=== PATIENT | male | born 1995 | race Asian ===

== ENCOUNTER 2020-06-12 20:40 | Emergency (ER) | payer OTHER, SELFPAY ==
[2020-06-12] VITALS (8 sets, daily range): BP systolic 124–136; BP diastolic 75–89; PULSE 102–125; RESP 19–35; TEMP 37.2; O2SAT 97–100
[2020-06-12 21:07] LABS: Add Manual Diff / Slide Review NO; Basophils Absolute Auto 100 /uL (0-100); Basophils Percent Auto 0.9 % (0-2); Eosinophils Absolute Auto 200 /uL (0-450); Hematocrit 50.4 % (41-53); Hemoglobin 17.2 g/dL (13.5-17.5); Lymphocytes Absolute Auto 2400 /uL (1100-4500); Lymphocytes Percent Auto 26.9 % (25-40); Mean Corpuscular HGB Conc 34.2 % (30-36); Mean Corpuscular Hemoglobin 28.5 PG (26-34); Mean Corpuscular Volume 83.3 fL (80-100); Monocytes Absolute Auto 600 /uL (0-900); Monocytes Percent Auto 7.1 % (3-14); Neutrophils Absolute Auto 5600 /uL (1500-7000); Neutrophils Percent Auto 63.1 % (50-75); Platelet Count 269 X10^3/uL (150-400); Red Blood Cell Count 6.05 X10^6/uL (4.5-5.9); Red Cell Distribution Width 12.8 % (11.6-14.8); White Blood Cell Count 8.9 X10^3/uL (4.5-11.0)
--- NOTE | 2020-06-12 21:08 | ED_ITS ---
HPI - Extremity Problem General Chief complaint: Extremity Problem,Nontraumatic Stated complaint: right hand swelling, unsure of cause Time Seen by Provider: 06/12/20 20:40 Source: patient Mode of arrival: Ambulatory Limitations: no limitations History of Present Illness HPI Narrative: 24-year-old male nonsmoker with noncontributory medical history presents with a chief complaint of a sudden onset pain and swelling in his right hand over the past few hours. He denies any injury whatsoever but has had a surgery on that hand for orthopedic injury a few years ago. Additionally complains of feeling a bit weak and feverish and has had night sweats the past few nights. He is not dizzy or light headed. He denies any street drugs or alcohol. He has had no chest pain or shortness of breath. Denies any recent travel or history of blood clot. MD Complaint: extremity pain and extremity swelling Onset (ago): hour(s) Pain Consistency: constant Location: right Quality: aching Radiation: none Relieving factors: immobilization Exacerbating factors: range of motion Related Data Previous Rx's Medication Instructions Recorded ketorolac 10 mg PO Q6H PRN #14 tab 06/13/20 Allergies Allergy/AdvReac Type Severity Reaction Status Date / Time No Known Drug Allergies Allergy Verified 06/12/20 20:52 Review of Systems Constitutional Constitutional: Denies chills, Denies fatigue, Denies fever(s), Denies frequent falls, Denies lethargy and Reports weakness Comments: night sweats Eyes Eyes: Denies change in vision, Denies eye discharge, Denies irritation and Denies loss of vision ENT Ears, Nose, Mouth, and Throat: Denies change in voice, Denies dizziness, Denies neck pain, Denies sore throat and Denies throat swelling Cardiovascular Cardiovascular: Denies chest pain, Denies irregular heart rhythm, Denies ligh theadedness, Denies palpitations, Denies dyspnea, Denies dyspnea on exertion and Denies orthopnea Respiratory Respiratory: Denies cough, Denies dyspnea, Denies dyspnea on exertion and Denies wheezing Gastrointestinal Gastrointestinal: Denies abdominal pain, Denies change in bowel habits, Denies diarrhea, Denies nausea and Denies vomiting Musculoskeletal Musculoskeletal: Reports arthralgias, Denies neck pain and Denies numbness Integumentary/Breasts Skin/Breast: Denies pruritus, Denies erythema, Denies rash and Denies wounds Neurologic Neurologic: Denies behavioral changes, Denies confusion, Denies dizziness, Denies frequent falls, Denies loss of vision, Denies numbness and Reports weakness Psychiatric Psychiatric: Denies anxiety, Denies behavioral changes, Denies confusion, Denies depression, Denies homicidal ideation and Denies suicidal ideation Endocrine Endocrine: Denies fatigue, Denies flushing and Denies palpitations Hematologic/Lymphatic Hematologic/Lymphatic: Denies easy bruising Allergic/Immunologic Allergic/Immunologic: Denies urticaria, Denies throat swelling and Denies wh eezing Patient History Medical History (Updated 06/13/20 @ 03:30 by Roger Dutton DO) Presence of surgical screw in right hand (Acute) Social History Smoking Status: Current every day smoker Smoking Status: Current every day smoker alcohol intake frequency: 0-2 drinks per day Substance Use Type: does not use Exam Narrative Exam Narrative: GENERAL: [24] year old patient appears stated age. Well- nourished, well-developed patient, in mild distress. Anxious HEAD: Atraumatic. Normocephalic. EYES: Pupils equal round and reactive. Extraocular motions intact. No scleral icterus. No injection or drainage. ENT: Nose without bleeding, purulent drainage. Throat without erythema, tonsillar hypertrophy or exudate. Airway patent. NECK: Trachea midline. Non tender CARDIOVASCULAR: Tachycardic but regular rhythm without murmurs, gallops, or rubs. RESPIRATORY: Clear to auscultation. Breath sounds equal bilaterally. No wheezes, rales, or rhonchi. GASTROINTESTINAL: Abdomen soft, non-tender, nondistended. EXTREMITIES: Scar from previous surgery on dorsum of R hand overlying 4th MC. Swelling and tenderness, no erythema, no red streaks. BACK: Nontender without deformity or crepitance. No flank tenderness. NEURO: AOx3. SKIN: No rash or erythema of visible areas Initial Vital Signs Initial Vital Signs: Vital Signs Temperature 98.9 F 06/12/20 20:49 Pulse Rate 125 H 06/12/20 20:49 Respiratory Rate 24 06/12/20 20:49 Blood Pressure 134/75 06/12/20 20:49 Pulse Oximetry 100 06/12/20 20:49 Course Orders Ordered: ED Orders 06/12/20 20:51 EKG-12 Lead Stat 06/12/20 20:59 Basic Metabolic Panel Stat C-Reactive Protein Quant Stat Complete Blood Count AUTO DIFF Stat D Dimer Stat Lactate (Lactic Acid) Stat Magnesium Stat NT-proBNP (BNP-Adult 18+) Stat Procalcitonin Stat Prothrombin Time INR Stat 06/12/20 21:22 Blood Culture Stat 06/12/20 22:41 CT angio chest PE protocol Stat 06/13/20 EKG-12 Lead Stat 06/13/20 01:10 XR hand RT min 3V Stat 06/13/20 01:36 CT UE RT w con Stat Discontinued Medications Hydrocodone Bitart/Acetaminophen (Vicodin 5/325 Prepack) 1 bottle MISC SEEINSTR ONE Stop: 06/13/20 03:31 Sodium Chloride (Normal Saline 0.9%) 1,000 mls @ 1,000 mls/hr IV BOLUS ONE Stop: 06/12/20 21:50 Last Infusion: 06/12/20 22:37 Dose: 0 mls/hr Documented by: Admin: 06/12/20 21:21 Dose: 1,000 mls/hr Documented by: TESS Ketorolac Tromethamine (Toradol) 15 mg IV NOW ONE Stop: 06/13/20 01:11 Last Admin: 06/13/20 01:16 Dose: 15 mg Documented by: TESS Reevaluation(s) Reevaluation #1: as visit goes on patient discusses episodes of chest pain and some episodes of trouble breathing along with some night sweats. Given elevated DDimer decision was made to pursue PE with CTA. Consultations Consultation #1: call to Ortho to discuss case. Labs are reassuring in that there is no elevation of CBC, ESR, or CRP however given pain with passive/active range of motion and swelling without injury we elect to do CT of extremity with IV contrast to evaluate for deep infection/abscess Vital Signs Vital signs: Vital Signs - 8 hr 06/12/20 20:49 06/12/20 20:50 06/12/20 21:00 Temperature 98.9 F Pulse Rate 121 H 121 H 115 H Pulse Rate [Right Radial] 110 H Respiratory Rate 24 35 H 19 Blood Pressure 134/75 129/78 124/78 Pulse Oximetry 98 98 97 06/12/20 21:30 06/12/20 22:00 06/12/20 22:30 Temperature Pulse Rate 110 H 102 H 105 H Pulse Rate [Right Radial] Respiratory Rate 34 H 27 H 24 Blood Pressure 130/89 136/83 130/79 Pulse Oximetry 97 98 99 06/12/20 23:09 06/12/20 23:30 06/13/20 00:00 Temperature Pulse Rate 105 H 104 H 105 H Pulse Rate [Right Radial] Respiratory Rate 23 19 Blood Pressure 129/76 Pulse Oximetry 98 98 97 MDM - Extremity (Nontraumatic) Lab Data Result diagrams: 06/12/20 20:59 06/12/20 20:59 Labs: Lab Results 06/12/20 06/12/20 06/12/20 Range/Units 20:59 20:59 20:59 WBC 8.9 (4.5-11.0) X10^3/uL RBC 6.05 H (4.5-5.9) X10^6/uL Hgb 17.2 (13.5-17.5) g/dL Hct 50.4 (41-53) % MCV 83.3 (80-100) fL MCH 28.5 (26-34) PG MCHC 34.2 (30-36) % RDW 12.8 (11.6-14.8) % Plt Count 269 (150-400) X10^3/uL Neut % (Auto) 63.1 (50-75) % Lymph % (Auto) 26.9 (25-40) % [place]ville % (Auto) 7.1 (3-14) % Eos % (Auto) 2.0 (2-4) % Baso % (Auto) 0.9 (0-2) % Neut # (Auto) 5600 (3558-8690) /uL Lymph # (Auto) 2400 (8591-8488) /uL Granville # (Auto) 600 (0-900) /uL Eos # (Auto) 200 (0-450) /uL Baso # (Auto) 100 (0-100) /uL PT 12.3 (10.1-12.7) SECONDS INR 1.1 (0.9-1.3) D-Dimer 289 H (<230) ng/mL Sodium (137-145) mmol/L Potassium (3.4-5.1) mmol/L Chloride (98-107) mmol/L Carbon Dioxide (22-32) mmol/L BUN (9-20) mg/dL Creatinine (0.66-1.25) mg/dL Estimated GFR (>60) mL/min BUN/Creatinine Ratio (6-22) Glucose (70-100) mg/dL Lactate (0.7-2.1) mmol/L Calcium (8.4-10.2) mg/dL Magnesium (1.6-2.3) mg/dL C-Reactive Protein (<1.0) mg/dL NT-Pro-B Natriuret Pep (<125) pg/mL Procalcitonin (<0.5) ng/mL 06/12/20 06/12/20 06/12/20 Range/Units 20:59 20:59 20:59 WBC (4.5-11.0) X10^3/uL RBC (4.5-5.9) X10^6/uL Hgb (13.5-17.5) g/dL Hct (41-53) % MCV (80-100) fL MCH (26-34) PG MCHC (30-36) % RDW (11.6-14.8) % Plt Count (150-400) X10^3/uL Neut % (Auto) (50-75) % Lymph % (Auto) (25-40) % Granville % (Auto) (3-14) % Eos % (Auto) (2-4) % Baso % (Auto) (0-2) % Neut # (Auto) (0977-3480) /uL Lymph # (Auto) (5311-4386) /uL Granville # (Auto) (0-900) /uL Eos # (Auto) (0-450) /uL Baso # (Auto) (0-100) /uL PT (10.1-12.7) SECONDS INR (0.9-1.3) D-Dimer (<230) ng/mL Sodium 141 (137-145) mmol/L Potassium 4.2 (3.4-5.1) mmol/L Chloride 102 (98-107) mmol/L Carbon Dioxide 28 (22-32) mmol/L BUN 14 (9-20) mg/dL Creatinine 1.13 (0.66-1.25) mg/dL Estimated GFR > 60.0 (>60) mL/min BUN/Creatinine Ratio 12.4 (6-22) Glucose 91 (70-100) mg/dL Lactate 1.9 (0.7-2.1) mmol/L Calcium 9.5 (8.4-10.2) mg/dL Magnesium 2.1 (1.6-2.3) mg/dL C-Reactive Protein < 0.5 (<1.0) mg/dL NT-Pro-B Natriuret Pep < 11 (<125) pg/mL Procalcitonin < 0.05 (<0.5) ng/mL Imaging Data Extremity x-ray #1: Radiologist's Impression: No acute CT abnormality is evident Discharge Plan Departure Patient Disposition: Home Clinical Impression: Hand pain, right Instructions: DI for Cellulitis -- Adult, DI for Hand Pain Activity Restrictions/Additional Instructions: *You have been diagnosed with [ hand pain, swelling, no evidence of infection in labs or imaging ] *What to do: *Take medications as directed *Follow up with your primary care provider in 2-3 days, call for an appointment. Let them know you were seen in the Emergency Department and that we ask that you be seen in follow up *Return to ER if you should have any new, worsening or concerning symptoms Prescriptions: New ketorolac 10 mg tablet 10 mg PO Q6H PRN (Reason: pain) Qty: 14 RF: 0 Referrals: [facility] [Outside] Dakotah Feldman MD [Physician] -
[2020-06-12 21:17] LABS: Lactate (Lactic Acid) 1.9 mmol/L (0.7-2.1)
[2020-06-12 21:19] LABS: BUN Creatinine Ratio 12.4 (6-22); Blood Urea Nitrogen 14 mg/dL (9-20); Calcium 9.5 mg/dL (8.4-10.2); Carbon Dioxide 28 mmol/L (22-32); Chloride 102 mmol/L (98-107); Estimated Glomerular Filt Rate > 60.0 mL/min (>60); Glucose 91 mg/dL (70-100); HEMOLYSIS 39 (0-50); Magnesium 2.1 mg/dL (1.6-2.3); Potassium 4.2 mmol/L (3.4-5.1); Sodium 141 mmol/L (137-145)
[2020-06-12 21:20] LABS: INR 1.1 (0.9-1.3); Prothrombin Time 12.3 SECONDS (10.1-12.7)
[2020-06-12] MEDS: SODIUM CHLORIDE 0.9% 1,000 ML 1000 ML IV (21:21)
[2020-06-12 21:24] LABS: C-Reactive Protein Quant < 0.5 mg/dL (<1.0)
[2020-06-12 21:25] LABS: NT-proBNP (BNP-Adult 18+) < 11 pg/mL (<125)
--- NOTE | 2020-06-12 21:29 | PC.NURSE ---
Pt had 15 seconds of 8/10 sharp chest pain, significant facial grimace observed. Pt states he has had intermittent episodes of this over past month lasting for a few seconds at a time. Has not sought tx. Dr. Dutton notified, no new orders. Pt vital stable, laughing in room with friend, no acute distress noted after episode.
[2020-06-12 21:32] LABS: Procalcitonin < 0.05 ng/mL (<0.5)
[2020-06-12 21:39] LABS: D Dimer 289 ng/mL (<230)
--- NOTE | 2020-06-12 22:41 | DI.CT.S_ITS ---
PROCEDURE: CT ANGIO CHEST PE PROTOCOL INDICATIONS: chest pain, tachycardia, sweats, elevated DDimer TECHNIQUE: After the administration of intravenous contrast, 2 mm thick sections acquired from the pulmonary apices to the posterior costophrenic angles. 3-dimensional maximum intensity projection (MIP) coronal and sagittal reformats were then acquired through the thorax. For radiation dose reduction, the following was used: automated exposure control, adjustment of mA and/or kV according to patient size. COMPARISON: None. FINDINGS: Image quality: Excellent. Pulmonary arteries: Pulmonary arteries are normal in size, and demonstrate no intraluminal filling defects to suggest central pulmonary embolism. Lungs and pleura: Lungs are clear. No pleural effusions or pneumothorax. Central and peripheral airways are patent. Mediastinum: Heart size is normal, without pericardial effusion. No mediastinal or hilar adenopathy. Thoracic aorta is normal in caliber and enhancement. Esophagus is normal in caliber, without hiatal hernia. Bones and chest wall: No suspicious bony lesions. Ribs and thoracic spine appear intact throughout. Thyroid gland is normal where visualized. No axillary or supraclavicular adenopathy. Abdomen: Visualized upper abdominal solid organs appear normal in the early arterial phase of enhancement. IMPRESSION: 1. No pulmonary embolus. 2. No lung consolidation or pleural effusions. Dictated by: Awa Means MD, PhD on 06/13/2020 at 7:11 Approved by: Awa Means MD, PhD on 06/13/2020 at 7:13
[2020-06-13] VITALS: PULSE 105; RESP 19; O2SAT 97
--- NOTE | 2020-06-13 01:10 | DI.RAD.S_ITS ---
PROCEDURE: XR HAND RT MIN 3V INDICATIONS: pain, swelling, no obvious injury TECHNIQUE: 3 views of the hand(s) acquired. COMPARISON: None. FINDINGS: Bones: No acute fractures or dislocations. Postsurgical changes compatible with ORIF of 4th and 5th metacarpal fractures. Orthopedic hardware is intact. No lucencies at the bone-hardware interface. Carpal bones are normally aligned. No suspicious bony lesions. No osseous erosive changes or periosteal reaction. Soft tissues: No suspicious soft tissue calcifications. No soft tissue gas. IMPRESSION: No domenic evidence of osteomyelitis. Plain film radiographs can be insensitive to osteomyelitis during the initial 15 days of the disease process. If there is clinical concern for osteomyelitis, then three-phase nuclear medicine bone scan should be considered for further evaluation. Dictated by: Awa Means MD, PhD on 06/13/2020 at 8:13 Approved by: Awa Means MD, PhD on 06/13/2020 at 8:14
[2020-06-13] MEDS: KETOROLAC 60 MG/2 ML VIAL 15 MG IV (01:16)
--- NOTE | 2020-06-13 01:36 | DI.CT.S_ITS ---
PROCEDURE: CT UE RT W CON INDICATIONS: pain, swelling, redness, no injury TECHNIQUE: After the administration of intravenous contrast, 3 mm axial sections acquired of the right hand and wrist , with coronal and sagittal reformats. COMPARISON: None. FINDINGS: Image quality: Excellent. Bones: Postsurgical changes related to plate and screw fixation of the 4th and 5th metacarpals. Expected postoperative alignment. Hardware appears intact. Soft tissues: Soft tissues appear grossly unremarkable. No focal fluid collection. The visualized extensor and flexor tendons appear within normal limits. IMPRESSION: No focal osseous destruction to suggest advanced osteomyelitis. If there is persistent clinical concern, continued short interval radiographic followup or contrast enhanced MRI could be performed to assess for early infection. Findings concordant with the preliminary study interpretation provided at the time of the exam. Dictated by: Cory Ibrahim M.D. on 06/13/2020 at 8:11 Approved by: Cory Ibrahim M.D. on 06/13/2020 at 8:17
[2020-06-13] MEDS: HYDROCODONE/ACET 5/325 PREPACK 1 BOTTLE MISC (03:49)
== END 2020-06-13 04:01 | disposition home or self-care (01) ==
PROVIDERS: Emergency Provider Emergency Medicine
DX: M79.641 Pain in right hand (principal); R06.00 Dyspnea, unspecified
CPT/HCPCS: 36415; 71275; 73130; 73201; 80048; 83605; 83735; 83880; 84145; 85025; 85379; 85610; 86140; 87040; 93005; 93041; 96361; 96374; 99284; J1885; Q9967

== ENCOUNTER 2022-12-05 11:56 | Emergency (ER) | payer OTHER, SELFPAY ==
[2022-12-05] VITALS (8 sets, daily range): BP systolic 108–136; BP diastolic 56–65; PULSE 67–92; RESP 16; TEMP 36.7; O2SAT 98–100; BMI 27.2
[2022-12-05] MEDS: ACETAMINOPHEN 325 MG TABLET 975 MG PO (12:09)
--- NOTE | 2022-12-05 12:38 | DI.CT.S_ITS ---
PROCEDURE: CT HEAD/BRAIN WO CON INDICATIONS: sudden headache, nausea, dizzy TECHNIQUE: Noncontrast 4.5 mm thick angled axial sections acquired from the foramen magnum to the vertex, with coronal and sagittal reformats. For radiation dose reduction, the following was used: automated exposure control, adjustment of mA and/or kV according to patient size. COMPARISON: None. FINDINGS: Image quality: Excellent. CSF spaces: Basal cisterns are patent. No extra-axial fluid collections. Ventricles are normal in size and shape. Brain: No midline shift. No intracranial masses or hemorrhage. Wayne-white matter interface is normal. Skull and face: Calvarium and visualized facial bones are intact, without suspicious lesions. Sinuses: Visualized sinuses and mastoids are clear. IMPRESSION: No evidence acute intracranial process. Dictated by: Colt Brooke M.D. on 12/05/2022 at 13:11 Approved by: Colt Brooke M.D. on 12/05/2022 at 13:12
--- NOTE | 2022-12-05 16:55 | DI.RAD.S_ITS ---
PROCEDURE: XR CERVICAL SPINE 2V OR 3V INDICATIONS: Left posterior neck pain TECHNIQUE: 3 view(s) of the cervical spine were acquired. COMPARISON: None. FINDINGS: Normal cervical spine vertebral body height and alignment. No fracture. No suspicious lytic or blastic osseous lesion. Prevertebral soft tissue thickness normal. IMPRESSION: No acute finding. No significant degenerative changes. Dictated by: Vaughn Dietz M.D. on 12/05/2022 at 17:25 Approved by: Vaughn Ditez M.D. on 12/05/2022 at 17:25
--- NOTE | 2022-12-05 16:56 | ED.HA ---
HPI - Headache General Chief Complaint: Headache Stated Complaint: severe headache Time Seen by Provider: 12/05/22 16:18 History of Present Illness HPI Narrative: Patient brought here by a friend. Complains of left-sided neck pain. Increased pain with movement. If he slowly moves his neck has pain but more tolerable. Does not matter what direction. No known injury. No new routine or bedding or pillow. No new stressors. Denies denies any headache. No fever chills. No prior problems with his neck. Does not ?pop? his neck. No neuro complaints. No numbness tingling or weakness. No slurred speech or facial droop. No vision changes. Patient states pain started 7:00 p.m. last night, 22 hours ago. Started slowly and has progressively gotten worse. All day yesterday no neck pain. No fever or chills. No nausea or vomiting or diarrhea. Related Data Previous Rx's Medication Instructions Recorded ketorolac 10 mg tablet 10 mg PO Q6H PRN pain #14 tabs 06/13/20 baclofen 20 mg tablet 20 mg PO TID PRN pain (scale score 12/05/22 4-6) #20 tabs ibuprofen 800 mg tablet 800 mg PO Q8H PRN pain #20 tabs 12/05/22 Allergies Allergy/AdvReac Type Severity Reaction Status Date / Time No Known Drug Allergies Allergy Verified 06/12/20 20:52 Review of Systems Review of Systems Narrative: GENERAL: negative chills, fatigue, malaise, fever, sweats. HEENT: negative sinus pain, ear pain, sore throat RESPIRATORY: negative dyspnea, cough CARDIOVASCULAR: negative chest pain, palpitations GASTROINTESTINAL: negative nausea, vomiting, abdominal pain : negative dysuria, frequency, hematuria MUSCULOSKELETAL: negative muscle or bony pain, positive neck pain SKIN: negative rash, skin lesions NEUROLOGIC: negative weakness, numbness Patient History Medical History Presence of surgical screw in right hand Social History Smoking Status: Current every day smoker Smoking Status: Current every day smoker alcohol intake frequency: 0-2 drinks per day Substance Use Type: does not use Exam Narrative Exam Narrative: GENERAL: in no distress, not toxic not dyspneic HEAD: Normocephalic. EYES: Pupils equal round, no photophobia, no papilledema ENT: Mucous membranes moist. NECK: Trachea midline. There is reproducible left upper paracervical muscle tenderness and spasm. Increased pain with range of motion but is able to rotate head left and right and tilt up and down but has pain. No tenderness on the right paracervical muscles. CARDIOVASCULAR: Regular rate and rhythm without murmurs RESPIRATORY: Clear to auscultation. Breath sounds equal bilaterally. No wheezes, rales, or rhonchi. GASTROINTESTINAL: Abdomen soft, non-tender EXTREMITIES: No gross deformities. BACK: No flank tenderness. NEURO: AOx4. Clear speech no facial droop light touch intact bilateral face and hands with strong equal security solutions engineer. Strong bilateral patellar reflexes and ankle flexion-extension SKIN: Warm and dry PSYCH: Not anxious, is cooperative Initial Vital Signs Initial Vital Signs: Vital Signs Temperature 98.1 F 12/05/22 11:59 Pulse Rate 92 H 12/05/22 11:59 Respiratory Rate 16 12/05/22 11:59 Blood Pressure 112/63 12/05/22 11:59 Pulse Oximetry 98 12/05/22 11:59 Oxygen Delivery Method 12/05/22 11:59 Course Orders Ordered: Discontinued Medications Acetaminophen (Acetaminophen 325 Mg Tablet) 975 mg PO NOW ONE Stop: 12/05/22 12:05 Last Admin: 12/05/22 12:09 Dose: 975 mg Documented By: BEAU Diazepam (Diazepam 5 Mg Tablet) 10 mg PO NOW ONE Stop: 12/05/22 16:55 Last Admin: 12/05/22 17:00 Dose: 10 mg Documented By: NR Ketorolac Tromethamine (Ketorolac 30 Mg/Ml Vial) 15 mg IV NOW ONE Stop: 12/05/22 16:55 Last Admin: 12/05/22 17:01 Dose: 15 mg Documented By: NR Vital Signs Vital signs: Vital Signs - 8 hr 12/05/22 11:59 12/05/22 15:33 12/05/22 16:00 Temperature 98.1 F Pulse Rate 92 H Respiratory Rate 16 Blood Pressure 112/63 136/65 122/58 L Pulse Oximetry 98 Oxygen Delivery Method Room Air 12/05/22 16:14 Temperature Pulse Rate 79 Respiratory Rate Blood Pressure Pulse Oximetry 99 Oxygen Delivery Method MDM - Headache Imaging Data CT scan - head: Radiologist's Impression: [address] [address] [address] Scan Report Signed Patient: Omar Eisenberg MR#: [id number] : 1995 Acct:[id number] Age/Sex: 27 / M Date of Service: 12/05/22 Loc: ED Accession Number: [id number] ?? Procedure: CT head/brain wo con Ordering Provider: Best Melendez MD PROCEDURE:? CT HEAD/BRAIN WO CON ? INDICATIONS:? sudden headache, nausea, dizzy ? TECHNIQUE:? Noncontrast 4.5 mm thick angled axial sections acquired from the foramen magnum to the vertex, with coronal and sagittal reformats.? For radiation dose reduction, the following was used:? automated exposure control, adjustment of mA and/or kV according to patient size.? ? COMPARISON:? None. ? FINDINGS:? Image quality:? Excellent.? ? CSF spaces:? Basal cisterns are patent.? No extra-axial fluid collections.? Ventricles are normal in size and shape.? ? Brain:? No midline shift.? No intracranial masses or hemorrhage.? Wayne-white matter interface is normal.? ? Skull and face:? Calvarium and visualized facial bones are intact, without suspicious lesions.? ? Sinuses:? Visualized sinuses and mastoids are clear.? ? IMPRESSION:? No evidence acute intracranial process. ? ? Dictated by: Colt Brooke M.D. on 12/05/2022 at 13:11 ? ? Approved by: Colt Brooke M.D. on 12/05/2022 at 13:12 ? [facility] Narrative Medical decision making narrative: Patient brought here by a friend. Complains of left-sided neck pain. Increased pain with movement. If he slowly moves his neck has pain but more tolerable. Does not matter what direction. No known injury. No new routine or bedding or pillow. No new stressors. Denies denies any headache. No fever chills. No prior problems with his neck. Does not ?pop? his neck. No neuro complaints. No numbness tingling or weakness. No slurred speech or facial droop. No vision changes. Patient states pain started 7:00 p.m. last night, 22 hours ago. Started slowly and has progressively gotten worse. All day yesterday no neck pain. No fever or chills. No nausea or vomiting or diarrhea. After history and exam, CT head, x-ray cervical spine, Toradol and Valium have been ordered. No blood work indicated at this time. Clinically is not meningitis. Patient does not have a headache. MDM CC: Neck pain Complicating co-morbidities: None Data collected from: Patient Medical records reviewed: No previous visits for neck pain or headache Differential considered: Includes but not limited to cervical strain/torticollis/muscle spasm/meningitis Exam documented above, pertinent findings include: Reproducible left upper cervical muscle tenderness and spasm Lab Test results independently reviewed as above. Pertinent findings: No blood work indicated at this time Imaging studies independently reviewed: CT head no acute process, x-ray cervical spine no acute process Treatments: Toradol Valium Re-evaluations: 6:55 p.m.. Patient feeling better after Toradol and Valium. Moving his neck much easier and faster now. Friend at bedside agrees. She is driving. Patient does recall playing volleyball yesterday. He may have strained his neck playing volleyball. Discussion: Appropriate for discharge home. Patient likely has clinically cervical muscle strain playing volleyball yesterday. He does not recall specific incident, however clinically not meningitis. No headache. Patient neck pain improved with Valium and Toradol. Moving his neck much easier now. Return precautions reviewed with him. Work note provided. Prescription for baclofen and ibuprofen provided. Nontoxic at discharge. No neuro deficits. Diagnosis: Cervical muscle strain Discharge Plan Departure Patient Disposition: Home Clinical Impression: Cervical muscle strain Instructions: DI for Cervical Muscle Strain Activity Restrictions/Additional Instructions: No driving operating machinery today. Return if worse if any questions or concerns. Please see family doctor in a week for re-evaluation. Prescription medication has been sent to your pharmacy to continue tomorrow. Work note provided for tomorrow as well. Return if worse if any questions or concerns. You may continue exercising but no straining of your neck muscles. Prescriptions: New ibuprofen 800 mg tablet 800 mg PO Q8H PRN (Reason: pain) Qty: 20 0RF baclofen 20 mg tablet 20 mg PO TID PRN (Reason: pain (scale score 4-6)) Qty: 20 0RF No Action ketorolac 10 mg tablet 10 mg PO Q6H PRN (Reason: pain) Qty: 14 0RF Referrals: ProviderJoey [Primary Care Provider] - Stand Alone Forms: Patient Portal/API, Work Release Note
[2022-12-05] MEDS: diazePAM 5 MG TABLET 10 MG PO (17:00)
[2022-12-05] MEDS: KETOROLAC 30 MG/ML VIAL 15 MG IV (17:01)
== END 2022-12-05 19:18 | disposition home or self-care (01) ==
PROVIDERS: Emergency Provider Emergency Medicine
DX: S16.1XXA Strain of muscle, fascia and tendon at neck level, initial encounter (principal); Y93.68 Activity, volleyball (beach) (court)
CPT/HCPCS: 70450; 72040; 96374; 99284; J1885

== ENCOUNTER 2022-12-18 20:07 | Emergency (ER) | payer OTHER, SELFPAY ==
[2022-12-18 20:27] VITALS: BP 141/65; PULSE 101; RESP 18; TEMP 36.8; O2SAT 99; BMI 26.9
[2022-12-19] VITALS (15 sets, daily range): BP systolic 84–116; BP diastolic 39–62; PULSE 55–86; O2SAT 92–100
--- NOTE | 2022-12-19 01:31 | ED_ITS ---
HPI - Headache General Chief Complaint: Headache Stated Complaint: severe headache, neck was out of alignment Time Seen by Provider: 12/19/22 03:27 Mode of arrival: Ambulatory History of Present Illness HPI Narrative: Patient is a healthy 27-year-old male who presents with left head pain and spasm.? He was seen evaluated here about 2 weeks ago where he was having some cervical muscle strain.? Actually had head CT and cervical spine CT and given pain medication.? [place] He actually had some osteopathic manipulation done to his neck he is not exactly sure what but since then he has had ongoing specific left head pain and all-over body spasm. ?He denies any fever or chills.? He will have intense spasm lasting a couple of minutes and then goes away.? He says pain starts dull in the morning progressively gets worse at night.? However tonight he had a persistently long spasm lasting about 30 minutes.? He denies any weakness.? He is awake alert during the spasms.? No urinary incontinence.? He has been taking some baclofen and kuvt-[id number]-[id number] medications at home without any relief. Related Data Previous Rx's Medication Instructions Recorded ketorolac 10 mg tablet 10 mg PO Q6H PRN pain #14 tabs 06/13/20 baclofen 20 mg tablet 20 mg PO TID PRN pain (scale score 12/05/22 4-6) #20 tabs ibuprofen 800 mg tablet 800 mg PO Q8H PRN pain #20 tabs 12/05/22 Allergies Allergy/AdvReac Type Severity Reaction Status Date / Time No Known Drug Allergies Allergy Verified 06/12/20 20:52 Review of Systems Review of Systems ROS Unobtainable: All systems reviewed & are unremarkable except as noted in HPI and below Patient History Medical History Presence of surgical screw in right hand Social History Smoking Status: Current every day smoker Smoking Status: Current every day smoker alcohol intake frequency: 0-2 drinks per day Substance Use Type: does not use Exam Initial Vital Signs Initial Vital Signs: Vital Signs Temperature 98.2 F 12/18/22 20:27 Pulse Rate 101 H 12/18/22 20:27 Respiratory Rate 18 12/18/22 20:27 Blood Pressure 141/65 H 12/18/22 20:27 Pulse Oximetry 99 12/18/22 20:27 Oxygen Delivery Method Room Air 12/18/22 20:27 GENERAL: ?Alert pleasant well-appearing 27-year-old and in no acute distress. HEENT: Head atraumatic,EOMI, pupils reactive, face symmetric, moist mucous membranes NECK: ?No cervical tenderness full range of motion no significant paraspinal tenderness ?CARDIOVASCULAR: Regular rate and rhythm without murmurs, rubs or gallops. RESPIRATORY: Breath sounds equal bilaterally, no wheezes rales or rhonchi. ABDOMEN: Soft, nontender.? Normoactive bowel sounds all 4 quadrants.? No guarding or rebound. : No CVA tenderness EXTREMITIES: Normal range of motion, no clubbing or edema.? Neurovascularly intact NEUROLOGICAL: Alert and oriented x4.Normal gait and speech. Cranial nerves II through XII grossly intact.?? Good [id number], good [id number], strength equal bilaterally, no dysarthria or aphasia, sensation in tact to soft touch bilaterally, no visual changes, no facial droop SKIN: Warm, dry, no laceration, no petechiae, no rashes or lesions. Course Orders Ordered: ED Orders 12/19/22 01:15 CBC Auto Diff [Complete Blood Count AUTO DIFF] Stat CMP [Comprehensive Metabolic Panel] Stat CPK [Creatine Kinase] Stat Lactate (Lactic Acid) Stat Discontinued Medications Sodium Chloride (Normal Saline 0.9%) 1,000 mls @ 1,000 mls/hr IV BOLUS ONE Stop: 12/19/22 03:08 Last Infusion: 12/19/22 03:37 Dose: 0 mls/hr Documented By: Admin: 12/19/22 02:34 Dose: 1,000 mls/hr Documented By: BEVERLEY Sodium Chloride (Normal Saline 0.9%) 1,000 mls @ 1,000 mls/hr IV BOLUS ONE Stop: 12/19/22 04:21 Last Admin: 12/19/22 03:40 Dose: 1,000 mls/hr Documented By: BEVERLEY Ketorolac Tromethamine (Ketorolac 30 Mg/Ml Vial) 15 mg IV NOW ONE Stop: 12/19/22 01:32 Last Admin: 12/19/22 01:42 Dose: 15 mg Documented By: RB Vital Signs Vital signs: Vital Signs - 8 hr 12/19/22 01:01 12/19/22 01:01 12/19/22 01:30 Pulse Rate 66 72 Blood Pressure 116/62 Pulse Oximetry 99 96 12/19/22 01:45 12/19/22 01:45 12/19/22 02:00 Pulse Rate 61 Blood Pressure 109/55 L 106/55 L Pulse Oximetry 98 12/19/22 02:00 12/19/22 02:15 12/19/22 02:15 Pulse Rate 63 61 Blood Pressure 108/56 L Pulse Oximetry 97 97 12/19/22 02:30 12/19/22 02:30 12/19/22 02:46 Pulse Rate 60 Blood Pressure 115/53 L 97/48 L Pulse Oximetry 97 12/19/22 02:46 12/19/22 03:00 12/19/22 03:00 Pulse Rate 72 55 L Blood Pressure 84/39 L Pulse Oximetry 97 95 12/19/22 03:15 12/19/22 03:15 Pulse Rate 64 Blood Pressure 90/54 L Pulse Oximetry 96 MDM - Headache Lab Data 12/19/22 01:15 12/19/22 01:15 Labs: Lab Results 12/19/22 12/19/22 12/19/22 Range/Units 01:15 01:15 01:15 WBC 8.9 (4.5-11.0) X10^3/uL RBC 5.47 (4.5-5.9) X10^6/uL Hgb 15.5 (13.5-17.5) g/dL Hct 46.5 (41-53) % MCV 85.1 (80-100) fL MCH 28.3 (26-34) PG MCHC 33.2 (30-36) % RDW 13.5 (11.6-14.8) % Plt Count 247 (150-400) X10^3/uL Neut % (Auto) 62.5 (50-75) % Lymph % (Auto) 30.3 (25-40) % [place] % (Auto) 5.0 (3-14) % Eos % (Auto) 1.8 L (2-4) % Baso % (Auto) 0.4 (0-2) % Neut # (Auto) 5500 (6561-5196) /uL Lymph # (Auto) 2700 (3207-6522) /uL [place] # (Auto) 400 (0-900) /uL Eos # (Auto) 200 (0-450) /uL Baso # (Auto) 0 (0-100) /uL Sodium 139 (137-145) mmol/L Potassium 4.0 (3.4-5.1) mmol/L Chloride 101 (98-107) mmol/L Carbon Dioxide 28 (22-32) mmol/L BUN 24 H (9-20) mg/dL Creatinine 1.03 (0.66-1.25) mg/dL Estimated GFR > 60 (>60) mL/min BUN/Creatinine Ratio 23.3 H (6-22) Glucose 91 (70-100) mg/dL Lactate 1.8 (0.7-2.1) mmol/L Calcium 8.9 (8.4-10.2) mg/dL Total Bilirubin 0.5 (0.2-1.3) mg/dL AST 43 (17-59) IU/L ALT 36 (<50) IU/L Alkaline Phosphatase 54 (38-126) U/L Total Creatine Kinase 2500 H (55-170) U/L Total Protein 7.6 (6.3-8.2) g/dL Albumin 4.5 (3.5-5.0) g/dL Globulin 3.1 (1.7-4.1) g/dL Albumin/Globulin Ratio 1.5 (1.0-2.8) Urine Dip Bedside Urine Glucose Negative Bedside Urine Bilirubin - Negative Bedside Urine Ketone - Negative Urine Specific [place] 1.020 Bedside Urine Occult Blood - Negative Bedside Urine pH 6.0 Bedside Urine Protein - Negative Bedside Urine Urobilinogen - Negative Bedside Urine Nitrite - Negative Imaging Data CTA - brain/neck: Radiologist's Impression: CT angio preliminary report normal CTA of neck and no acute intracranial abnormality of head MDM Narrative Medical decision making narrative: Patient healthy 27-year-old male who had some cervical pain and now his post manipulation having spasms.? Not convinced he had HVLA technique although possible.? He is no numbness tingling or weakness in his extremities.? Is having significant spasm.? He is found to have CPK elevation of 2300.? After discussion with patient he reports that he chronically has elevation of CPK is been as high as 8000.? He reports that he exercises an unhealthy amount.? However due to concern for unknown osteopathic treatment CT angio head and neck is done.? Which does not show any acute abnormality.? Repeat CPK has gone down after 2 L of fluid.? Patient has a normal lactic acid.? Blood pressure is noted to be mildly elevated here initially due to improper cuff. Patient overall feeling a lot better blood pressure is noted to be a little bit on the lower end but he is asymptomatic.? Patient is given prescription for Valium Discharge Plan Departure Prescriptions: No Action ketorolac 10 mg tablet 10 mg PO Q6H PRN (Reason: pain) Qty: 14 0RF ibuprofen 800 mg tablet 800 mg PO Q8H PRN (Reason: pain) Qty: 20 0RF baclofen 20 mg tablet 20 mg PO TID PRN (Reason: pain (scale score 4-6)) Qty: 20 0RF Referrals: Provider,Joey HDZ [Primary Care Provider] -
[2022-12-19 01:42] LABS: Add Manual Diff / Slide Review NO; Basophils Absolute Auto 0 /uL (0-100); Basophils Percent Auto 0.4 % (0-2); Eosinophils Absolute Auto 200 /uL (0-450); Eosinophils Percent Auto 1.8 % (2-4); Hematocrit 46.5 % (41-53); Hemoglobin 15.5 g/dL (13.5-17.5); Lymphocytes Absolute Auto 2700 /uL (1100-4500); Lymphocytes Percent Auto 30.3 % (25-40); Mean Corpuscular HGB Conc 33.2 % (30-36); Mean Corpuscular Hemoglobin 28.3 PG (26-34); Mean Corpuscular Volume 85.1 fL (80-100); Monocytes Absolute Auto 400 /uL (0-900); Neutrophils Absolute Auto 5500 /uL (1500-7000); Neutrophils Percent Auto 62.5 % (50-75); Platelet Count 247 X10^3/uL (150-400); Red Blood Cell Count 5.47 X10^6/uL (4.5-5.9); Red Cell Distribution Width 13.5 % (11.6-14.8); White Blood Cell Count 8.9 X10^3/uL (4.5-11.0)
[2022-12-19] MEDS: KETOROLAC 30 MG/ML VIAL 15 MG IV (01:42)
[2022-12-19 01:44] LABS: Alanine Aminotransferase 36 IU/L (<50); Albumin 4.5 g/dL (3.5-5.0); Albumin Globulin Ratio 1.5 (1.0-2.8); Alkaline Phosphatase 54 U/L (38-126); Aspartate Aminotransferase 43 IU/L (17-59); BUN Creatinine Ratio 23.3 (6-22); Bilirubin Total 0.5 mg/dL (0.2-1.3); Blood Urea Nitrogen 24 mg/dL (9-20); Calcium 8.9 mg/dL (8.4-10.2); Carbon Dioxide 28 mmol/L (22-32); Chloride 101 mmol/L (98-107); Estimated Glomerular Filt Rate > 60 mL/min (>60); Globulin 3.1 g/dL (1.7-4.1); Glucose 91 mg/dL (70-100); HEMOLYSIS < 15 (0-50); Sodium 139 mmol/L (137-145); Total Protein 7.6 g/dL (6.3-8.2)
[2022-12-19 01:54] LABS: Creatine Kinase 2500 U/L (55-170)
[2022-12-19] MEDS: SODIUM CHLORIDE 0.9% 1,000 ML 1000 ML IV ×2 (02:34→03:40)
[2022-12-19 03:33] LABS: Lactate (Lactic Acid) 1.8 mmol/L (0.7-2.1)
[2022-12-19 07:00] LABS: Creatine Kinase 1779 U/L (55-170)
== END 2022-12-19 05:35 | disposition home or self-care (01) ==
PROVIDERS: Emergency Provider Emergency Medicine
DX: M62.838 Other muscle spasm (principal); R79.89 Other specified abnormal findings of blood chemistry
CPT/HCPCS: 36415; 80053; 81003; 82550; 83605; 85025; 96361; 96374; 99284; J1885